=== PATIENT | female | born 1975 | race African-American/Black ===

== ENCOUNTER 2019-06-05 21:23 | Emergency (ER) | payer MEDICAID, OTHER ==
[~2019-06-05] VITALS: Ht 162.6 cm; Wt 154.2 kg
[2019-06-06] MEDS ORDERED: HYDROcodone-ACET 10/325MG TAB PO ONE
[2019-06-06] MEDS ORDERED: METHOCARBAMOL 500 MG TAB PO ONE
[2019-06-06 00:23] VITALS: BP 155/93
== END 2019-06-06 00:43 | disposition home or self-care (01) ==
LOC: EDBD 21:23 → ER 21:27
DX: R51 Headache (principal); M79.10 Myalgia, unspecified site; Z88.8 Allergy status to other drugs, medicaments and biological substances; V49.59XA Passenger injured in collision with other motor vehicles in traffic accident, initial encounter; Y93.89 Activity, other specified; Y99.8 Other external cause status; Y92.411 Interstate highway as the place of occurrence of the external cause